=== PATIENT | male | born 1950 | race Caucasian/White ===

== ENCOUNTER 2021-07-31 06:37 | Day surgery (SDC) | payer MEDICARE ==
[2021-07-26 10:38] VITALS: BMI 35.2
[2021-07-31] MEDS ORDERED: Lidocaine 1% MPF 2 ML VIAL ONE (08:58)
[2021-07-31] MEDS ORDERED: PROPOFOL 20 ML ONE (09:28)
[2021-07-31] MEDS ORDERED: CEFAZOLIN 1 GM VIAL ONE (09:28)
[2021-07-31] MEDS ORDERED: Fentanyl 100 MCG/2 ML VIAL ONE (09:28)
[2021-07-31] MEDS ORDERED: Ondansetron PF 4 MG/2 ML Vial ONE (09:28)
[2021-07-31] MEDS ORDERED: Lidocaine 1% PF 5 ML VIAL ONE (09:28)
[2021-07-31] MEDS ORDERED: Midazolam HCl 2 mg/2 ml Vial ONE (09:28)
[2021-07-31] MEDS ORDERED: Lidocaine 1% w/Epinephrine 1:100K 20 ML VIAL ONE ×2 (09:28)
[2021-07-31] MEDS ORDERED: Mupirocin 2% Ointment 22 GM Tube ONE (09:28)
[2021-07-31] MEDS ORDERED: Gentamicin Ophth Ointment 0.3% 3.5 gm Tube EA EYE SCH (11:00)
[2021-07-31] MEDS ORDERED: Erythromycin Base 0.5% Oint 1 GM TUBE FS SCH (11:00)
== END 2021-07-31 13:20 | disposition home or self-care (01) ==
LOC: CSHSDC 06:37
PROVIDERS: ATTEND Otolaryngology Plastic Surgery within the Head & Neck
DX: L82.0 Inflamed seborrheic keratosis (principal); Z79.899 Other long term (current) drug therapy; Z79.4 Long term (current) use of insulin; Z79.01 Long term (current) use of anticoagulants; E11.9 Type 2 diabetes mellitus without complications; J44.9 Chronic obstructive pulmonary disease, unspecified; I48.91 Unspecified atrial fibrillation; G47.30 Sleep apnea, unspecified; I10 Essential (primary) hypertension
CPT/HCPCS: 36416; 88305; 88312; 88331; 88332; J0690; J2250; J2405; J2704; J3010